=== PATIENT | female | born 1940 | race Two or more races ===

== ENCOUNTER 2017-02-11 18:58 | Inpatient (IN) | payer MEDICARE, OTHER ==
[~2017-02-11] VITALS: Ht 157.5 cm; Wt 53.5 kg
[2017-02-11] MEDS ORDERED: ACETAMINOPHEN 325MG TABLET PO STA (19:32)
[2017-02-11] MEDS ORDERED: SODIUM CHLORIDE 0.9% 1,000 ML IV ONE (19:32)
[2017-02-11 20:00] LABS: BASOPHILS % 0.4 % (0.0-2.0); EOSINOPHILS % 3.1 % (0.0-5.0); HEMATOCRIT. 35.2 % (36.0-48.0); HEMOGLOBIN. 11.9 g/dL (12.0-16.0); LYMPHOCYTES % 12.7 % (20.0-50.0); MEAN CORPUSCULAR HEMOGLOBIN 27.1 pg (28.0-32.0); MEAN CORPUSCULAR VOLUME 79.8 fL (81.0-99.0); MEAN PLATELET VOLUME 8.9 fl (7.4-10.4); NEUTROPHILS % 71.8 % (40.0-76.0); PLATELET 174 x1000/uL (130-400); PROTHROMBIN TIME 10.5 sec; RED BLOOD CELL COUNT 4.41 mill/uL (4.2-5.4); RED CELL DISTRIBUTION WIDTH 14.1 % (11.6-14.6)
[2017-02-11 20:03] LABS: AMMONIA 25 uMol/L (<32)
[2017-02-11 20:06] LABS: CARBON DIOXIDE 26 mEq/L (21-32); CHLORIDE 104 mEq/L (98-107); ETHANOL BLOOD < 10 mg/dL
[2017-02-11 20:11] LABS: TROPONIN I < 0.02 ng/mL (0.00-0.04)
[2017-02-11 22:03] LABS: CLARITY URINE CLEAR (CLEAR); COLOR URINE YELLOW (YELLOW); GLUCOSE URINE NEGATIVE (NEGATIVE); KETONES URINE NEGATIVE (NEGATIVE); LEUKOCYTE ESTERASE URINE NEGATIVE (NEGATIVE); NITRITE URINE NEGATIVE (NEGATIVE); OCCULT BLOOD URINE NEGATIVE (NEGATIVE); PH URINE 6.5 (4.5-8.0); PROTEIN URINE NEGATIVE (NEGATIVE); SPECIFIC GRAVITY URINE 1.012 (1.005-1.030); UROBILINOGEN URINE 0.2 E.U./dL (0.2-1.0)
[2017-02-11 22:15] LABS: *AMPHETAMINES SCREEN URINE NEGATIVE (NEGATIVE); *BARBITURATES SCREEN URINE NEGATIVE (NEGATIVE); *BENZODIAZEPINES SCREEN URINE NEGATIVE (NEGATIVE); *COCAINE SCREEN URINE NEGATIVE (NEGATIVE); CANNABINOID URINE SCREEN NEGATIVE (NEGATIVE); METHADONE URINE SCREEN NEGATIVE (NEGATIVE); OPIATES URINE SCREEN NEGATIVE (NEGATIVE); PHENCYCLIDINE URINE SCREEN NEGATIVE (NEGATIVE)
[2017-02-11] MEDS ORDERED: POTASSIUM BICARB/CIT ACID 25 MEQ TABLET.EFF PO NR (23:00)
[2017-02-12] MEDS ORDERED: ACETAMINOPHEN 325MG TABLET PO NR (03:13)
[2017-02-12 09:24] VITALS: BP 154/84
[2017-02-12] MEDS ORDERED: MULT-1146 PO (09:24)
[2017-02-12] MEDS ORDERED: TELM1TAB6 PO (09:24)
[2017-02-12] MEDS ORDERED: MAGN500C4 MT (09:24)
[2017-02-12] MEDS ORDERED: FAMO40TA7 PO (09:24)
[2017-02-12] MEDS ORDERED: AMLO5TAB4 PO ×2 (09:24)
[2017-02-12] MEDS ORDERED: CARV6.2548 PO (09:24)
[2017-02-12] MEDS ORDERED: GABA-531 PO (09:24)
[2017-02-12] MEDS ORDERED: DEXT 5%/0.45% NACL KCL 10MEQ/L 1,000 ML IV SCH (10:31)
[2017-02-12] MEDS ORDERED: GUAIFENESIN 200MG/10ML SUGAR FREE UDC PO PRN (10:45)
[2017-02-12] MEDS ORDERED: DIPHENHYDRAMINE 50MG/ML VIAL IV PRN (10:45)
[2017-02-12] MEDS ORDERED: ACETAMINOPHEN 325MG TABLET PO PRN (10:45)
[2017-02-12] MEDS ORDERED: IPRATROPIUM/ALBUTEROL 0.5-3(2.5)MG/3ML NEB INH PRN (10:45)
[2017-02-12] MEDS ORDERED: CARVEDILOL 6.25 MG TABLET PO SCH (10:45)
[2017-02-12] MEDS ORDERED: ENOXAPARIN 40MG/0.4ML SYR SUBCUT SCH (10:45)
[2017-02-12] MEDS ORDERED: ONDANSETRON HCL 4MG/2ML VIAL IV PRN (10:45)
[2017-02-12] MEDS ORDERED: GABAPENTIN 300MG CAPSULE PO SCH (10:45)
[2017-02-12] MEDS ORDERED: MAGNESIUM/ALUMINUM HYDROXIDE/SIMETHICONE 30ML UDC PO PRN (10:45)
[2017-02-12] MEDS ORDERED: DOCUSATE SODIUM 100MG CAPSULE PO PRN (10:45)
[2017-02-12] MEDS ORDERED: HYDROMORPHONE HCL/PF 2MG/ML CPJ IV PRN (10:45)
[2017-02-12] MEDS ORDERED: LORAZEPAM 2MG/ML CPJ IV PRN (10:45)
[2017-02-12] MEDS ORDERED: HYDROCODONE/ACETAMINOPHEN 5/325MG TABLET PO PRN (10:45)
[2017-02-12] MEDS ORDERED: NA PHOS,M-B/NA PHOS,DI-BA ENEMA 118ML PR PRN (10:45)
[2017-02-12] MEDS ORDERED: ENOXAPARIN 30MG/0.3ML SYR SUBCUT SCH (10:45)
[2017-02-12] MEDS ORDERED: CLONIDINE 0.1MG TABLET PO PRN (10:45)
[2017-02-12] MEDS ORDERED: MULTIVITAMINS,THER W-MINERALS TABLET PO SCH (10:48)
[2017-02-12] MEDS ORDERED: HYDROCHLOROTHIAZIDE 12.5MG CAPSULE PO SCH (11:00)
[2017-02-12] MEDS ORDERED: LOSARTAN POTASSIUM 100 MG TABLET PO SCH (11:00)
[2017-02-12] MEDS ORDERED: GABAPENTIN 300MG CAPSULE PO PRN (11:15)
[2017-02-12 11:45] VITALS: BP 115/72
[2017-02-12 12:05] LABS: CARBON DIOXIDE 30 mEq/L (21-32); CHLORIDE 105 mEq/L (98-107)
[2017-02-12] MEDS ORDERED: MEDICATION NOT ON FORMULARY EA (Famotidine 1 TAB) PO SCH (21:00)
[2017-02-12] MEDS ORDERED: FAMOTIDINE 20MG TABLET PO SCH (21:00)
[2017-02-12] MEDS ORDERED: AMLODIPINE 5MG TABLET PO SCH (21:00)
[2017-02-13] MEDS ORDERED: ASPIRIN 81MG EC TABLET PO SCH (09:00)
[2017-02-13] MEDS ORDERED: MEDICATION NOT ON FORMULARY EA (Multivitamin (Multi Vitamin Daily) 1 TAB) PO SCH (09:00)
== END 2017-02-12 11:45 | disposition left against medical advice (07) | DRG 682 ==
LOC: ER 19:51 → 5WST 02-12 00:34 → ENRESERV 02-12 08:00
PROVIDERS: ADMIT Internal Medicine; ATTEND Internal Medicine
DX: N17.0 Acute kidney failure with tubular necrosis (principal); G93.41 Metabolic encephalopathy; E78.5 Hyperlipidemia, unspecified; G90.8 Other disorders of autonomic nervous system; E86.0 Dehydration; E87.6 Hypokalemia; I10 Essential (primary) hypertension; Z53.21 Procedure and treatment not carried out due to patient leaving prior to being seen by health care provider; Z79.899 Other long term (current) drug therapy; Z82.49 Family history of ischemic heart disease and other diseases of the circulatory system; Z83.3 Family history of diabetes mellitus
CPT/HCPCS: 36415; 70450; 71010; 80048; 80053; 80305; 81003; 82140; 83690; 83880; 84443; 84484; 85025; 85610; 93005; 96360; 99285; G0482; J7030